=== PATIENT | male | born 1980 | race Caucasian/White ===

== ENCOUNTER 2018-09-11 12:27 | Day surgery (SDC) | payer MEDICAID ==
[~2018-09-11] VITALS: Ht 175.3 cm; Wt 81.8 kg
[2018-09-11 11:40] VITALS: BP 139/81
[~2018-09-11 12:27] MED LIST: CYCL-1 PO; HYDR-4383 PO; NABU500T2 PO; PANT-47 PO
[2018-09-11] MEDS ORDERED: PANT20TA3 PO (13:02)
[2018-09-11] MEDS ORDERED: SUCR1TAB34 PO (13:02)
[2018-09-11] MEDS ORDERED: CYCL-1 PO (13:02)
[2018-09-11] MEDS ORDERED: ALBU8HFA PO (13:03)
[2018-09-11] MEDS ORDERED: IBUP-1986 PO (13:03)
[2018-09-11] MEDS ORDERED: fentaNYL/PF 50MCG/1 ML 2ML syringe ONE (13:10)
[2018-09-11] MEDS ORDERED: MIDAZolam 5mg/5ml vial ONE ×2 (13:11)
[2018-09-11 13:40] VITALS: BP 128/74
[2018-09-11 13:49] VITALS: BP 133/80
[2018-09-11 13:59] VITALS: BP 128/78
[2018-09-11 14:09] VITALS: BP 125/70
== END 2018-09-11 14:25 | disposition home or self-care (01) ==
LOC: GI LAB 12:27
PROVIDERS: ATTEND Internal Medicine Gastroenterology
DX: D12.3 Benign neoplasm of transverse colon (principal); K64.8 Other hemorrhoids; K62.1 Rectal polyp; K92.1 Melena; F17.210 Nicotine dependence, cigarettes, uncomplicated; K21.9 Gastro-esophageal reflux disease without esophagitis; M19.90 Unspecified osteoarthritis, unspecified site; Z72.89 Other problems related to lifestyle; Z79.1 Long term (current) use of non-steroidal anti-inflammatories (NSAID); Z79.899 Other long term (current) drug therapy; Z88.8 Allergy status to other drugs, medicaments and biological substances
CPT/HCPCS: 45385; 99152; J2250; J3010; J7030; 99153; A4620

== ENCOUNTER 2020-07-24 07:07 | Day surgery (SDC) | payer MEDICAID ==
[2020-07-22 09:50] LABS: BASOPHILS % (AUTO) 0.6 % (0-1); EOSINOPHILS # (AUTO) 0.2 X10'3 (0-0.9); EOSINOPHILS % (AUTO) 2.9 % (0-6); LYMPHOCYTES # (AUTO) 1.9 X10'3 (1.1-4.8); LYMPHOCYTES % (AUTO) 28.1 % (21-51); MEAN CORPUSCULAR HEMOGLOBIN 29.2 PG (27.0-31.0); MEAN CORPUSCULAR HGB CONC 33.3 g/dL (33.0-36.5); MEAN CORPUSCULAR VOLUME 87.7 FL (78-98); MEAN PLATELET VOLUME 7.6 FL (7.4-10.4); MONOCYTES # (AUTO) 0.9 X10'3 (0-0.9); MONOCYTES % (AUTO) 13.3 % (2-12); NEUTROPHILS # (AUTO) 3.7 X10'3 (1.8-7.7); NEUTROPHILS % (AUTO) 55.1 % (42-75); PRE OP HEMATOCRIT 41.4 % (42.0-52.0); PRE OP HEMOGLOBIN 13.8 g/dL (14.0-17.9); PRE OP PLATELET COUNT 299 X10'3 (140-440); RED BLOOD COUNT 4.73 X10'6 (4.70-6.10); RED CELL DISTRIBUTION WIDTH 13.1 % (11.5-14.5)
[2020-07-22 09:56] LABS: ALBUMIN 3.9 G/DL (3.4-5.0); ALBUMIN/GLOBULIN RATIO 1.1 (1.1-1.5); ALKALINE PHOSPHATASE 66 IU/L (46-116); BLOOD UREA NITROGEN 13 MG/DL (7-18); BUN/CREATININE RATIO 14.4 (5.4-32.0); CALCIUM 8.9 MG/DL (8.5-10.1); CHLORIDE 102 MMOL/L (99-107); PRE OP ALT 30 U/L (30-65); PRE OP ANION GAP 6 (8-16); PRE OP AST 21 U/L (10-37); PRE OP BILIRUB, TOTAL 0.3 MG/DL (0.0-1.0); PRE OP GLUCOSE 95 MG/DL (70-104); PRE OP POTASSIUM 4.6 MMOL/L (3.4-5.1); PRE OP SODIUM 136 MMOL/L (135-145); TOTAL CARBON DIOXIDE 27.9 MMOL/L (24-32); TOTAL PROTEIN 7.3 G/DL (6.4-8.2); eGFR > 90 ML/MIN
[~2020-07-24] VITALS: Ht 175.3 cm; Wt 102.1 kg
[~2020-07-24 07:07] MED LIST changes: +ALBU8HFA PO; +GABA300C PO; -HYDR-4383 PO; +LISI10TA4 PO; +LORA10TA7 PO; -NABU500T2 PO; -PANT-47 PO; +PANT20TA18 PO; +cefazolin/dext.iso 2gm/50ml 50 ML IV ONE; +famotidine 20mg tablet PO ONE; +ringers solution, lacted 1,000 ML IV SCH
[2020-07-24] MEDS ORDERED: LIDOcaine 0.5% (5mg/ml) 50ml vial ONE (07:22)
[2020-07-24] MEDS ORDERED: ringers solution, lacted 1,000 ML IV SCH (07:26)
[2020-07-24] MEDS ORDERED: hydrALAZINE 20mg/ml inj. IV PRN (07:30)
[2020-07-24] MEDS ORDERED: morphine 4 MG/ML inj SYRINge IV PRN (07:30)
[2020-07-24] MEDS ORDERED: ondansetron/PF 4mg/2ml inj IV PRN (07:30)
[2020-07-24] MEDS ORDERED: labetalol 20mg/4ml (5mg/ml) syringe IV PRN (07:30)
[2020-07-24] MEDS ORDERED: fentaNYL/PF 50MCG/1 ML 2ML syringe IV PRN ×2 (07:30)
[2020-07-24] MEDS ORDERED: morphine 2 MG/ML inj. syringe IV PRN (07:30)
[2020-07-24] MEDS ORDERED: BUPIVAcaine/PF 2.5mg/ml (0.25%) 10ml vial ONE (10:53)
[2020-07-24] MEDS ORDERED: fentaNYL/PF 50MCG/1 ML 2ML syringe ONE (11:21)
[2020-07-24] MEDS ORDERED: MIDAZolam 5mg/5ml vial ONE (11:22)
[2020-07-24 11:39] VITALS: BP 115/75
[2020-07-24 11:42] VITALS: BP 115/75
[2020-07-24 12:07] VITALS: BP 111/75
--- NOTE | 2020-07-24 12:07 | NUR ---
Received from OR via [facility] , accompanied by Anesthesiologist KATE and report given by Anesthesiolgist. PATIENT WITH 20G PIVI N RIGHT UE RUNNING LR AT 100. DENIES PAIN AT THIS TIME. VSS. LEFT HAND WITH SPLINT THAT IS CDI. NO DRAINAGE NO C.O. PAIN AT THIS TIME Addendum: 07/24/20 at 1213 by Norberto Robbins RN, RN Amended: Links added.
[2020-07-24 12:17] VITALS: BP 105/61
[2020-07-24 12:27] VITALS: BP 117/60
[2020-07-24 12:37] VITALS: BP 116/80
--- NOTE | 2020-07-24 12:47 | NUR ---
PATIENT HAS MET ALL DC CRITERIA FOR HOME. VSS. PAIN AT A TOLERABLE LEVEL. PATIENT TAKEN OUT VIA WHEELCHAIR TO PERSONAL VEHICLE WHERE PATIENT WAS TAKEN HOME. DRESSING CDI. ALL DC INSTRUCTIONS DISCUSSED WITH PATIENT. ALL QUESTIONS ANSWERED. Addendum: 07/24/20 at 1256 by Norberto Robbins RN RN Amended: Links added.
[2020-07-24] MEDS ORDERED: ketorolac trometh. 30mg/ml inj. ONE (13:01)
== END 2020-07-24 12:47 | disposition home or self-care (01) ==
LOC: PAS 07:07
PROVIDERS: ATTEND Orthopaedic Surgery Hand Surgery
DX: S68.123A Partial traumatic metacarpophalangeal amputation of left middle finger, initial encounter (principal); S68.125A Partial traumatic metacarpophalangeal amputation of left ring finger, initial encounter; J45.909 Unspecified asthma, uncomplicated; I10 Essential (primary) hypertension; G89.29 Other chronic pain; K21.9 Gastro-esophageal reflux disease without esophagitis; G57.00 Lesion of sciatic nerve, unspecified lower limb; Z79.899 Other long term (current) drug therapy; Z88.8 Allergy status to other drugs, medicaments and biological substances; Z72.89 Other problems related to lifestyle; W28.XXXA Contact with powered lawn mower, initial encounter; Y93.89 Activity, other specified; Y92.89 Other specified places as the place of occurrence of the external cause; Y99.8 Other external cause status
CPT/HCPCS: 26951; 36415; 80053; 82948; 85025; A6222; J1885; J2001; J2250; J3010; J3490; J7120

== ENCOUNTER 2020-11-29 07:40 | Emergency (ER) | payer MEDICAID ==
[~2020-11-29] VITALS: Ht 175.3 cm; Wt 90.9 kg
[~2020-11-29 07:40] MED LIST changes: -cefazolin/dext.iso 2gm/50ml 50 ML IV ONE; -famotidine 20mg tablet PO ONE; -ringers solution, lacted 1,000 ML IV SCH
[2020-11-29 07:45] VITALS: BP 153/96
== END 2020-11-29 09:15 | disposition home or self-care (01) ==
LOC: ER 07:40
DX: S90.32XA Contusion of left foot, initial encounter (principal); G89.29 Other chronic pain; F12.90 Cannabis use, unspecified, uncomplicated; Z88.8 Allergy status to other drugs, medicaments and biological substances; Z79.899 Other long term (current) drug therapy; W01.0XXA Fall on same level from slipping, tripping and stumbling without subsequent striking against object, initial encounter; Y93.89 Activity, other specified; Y92.89 Other specified places as the place of occurrence of the external cause; Y99.8 Other external cause status
CPT/HCPCS: 73630; 99283

== ENCOUNTER 2023-11-12 11:06 | Emergency (ER) | payer MEDICAID ==
[~2023-11-12] VITALS: Ht 175.3 cm; Wt 91.1 kg
[~2023-11-12 11:06] MED LIST changes: +LISI10TA27 PO; -LISI10TA4 PO
[2023-11-12 11:16] VITALS: TEMP 98.6
[2023-11-12 11:56] LABS: BILIRUBIN,URINE NEGATIVE (Neg); CLARITY,URINE CLEAR (Clear); COLOR,URINE YELLOW (Yellow); GLUCOSE, URINE NEGATIVE (Neg); KETONES,URINE NEGATIVE (Neg); LEUKOCYTE ESTERASE ,URINE NEGATIVE (Neg); NITRITES, URINE NEGATIVE (Neg); OCCULT BLOOD,URINE NEGATIVE (Neg); PROTEIN,URINE NEGATIVE (Neg); UROBILINOGEN,URINE 0.2 E.U/dL (0.2-1.0)
[2023-11-12 11:57] LABS: BASOPHILS % (AUTO) 0.2 % (0-1); EOSINOPHILS # (AUTO) 0.1 X10'3 (0-0.9); EOSINOPHILS % (AUTO) 0.5 % (0-6); HEMATOCRIT 49.9 % (42.0-52.0); HEMOGLOBIN 16.5 g/dl (14.0-17.9); LYMPHOCYTES # (AUTO) 3.2 X10'3 (1.1-4.8); LYMPHOCYTES % (AUTO) 27.4 % (21-51); MEAN CORPUSCULAR HEMOGLOBIN 28.7 PG (27.0-31.0); MEAN CORPUSCULAR HGB CONC 33.1 g/dL (33.0-36.5); MEAN CORPUSCULAR VOLUME 86.6 FL (78-98); MEAN PLATELET VOLUME 7.5 FL (7.4-10.4); MONOCYTES % (AUTO) 8.2 % (2-12); NEUTROPHILS # (AUTO) 7.4 X10'3 (1.8-7.7); NEUTROPHILS % (AUTO) 63.7 % (42-75); PLATELET COUNT 335 X10'3 (140-440); RED BLOOD COUNT 5.76 X10'6 (4.70-6.10); WHITE BLOOD COUNT 11.6 X10'3 (4.5-11.0)
[2023-11-12 12:00] LABS: UA COLLECTION TYPE CLN CATCH MIDSTREAM
[2023-11-12 12:11] LABS: ALANINE AMINOTRANSFERASE 39 U/L (12-78); ALBUMIN 4.3 G/DL (3.4-5.0); ALKALINE PHOSPHATASE 75 IU/L (46-116); ANION GAP 9 (8-16); ASPARTATE AMINO TRANSFERASE 32 U/L (10-37); BILIRUBIN,TOTAL 0.5 MG/DL (0.1-1.0); BLOOD UREA NITROGEN 11 MG/DL (7-18); BUN/CREATININE RATIO 11.3 (10.0-20.0); CALCIUM 9.8 MG/DL (8.5-10.1); CHLORIDE 99 MMOL/L (99-107); CREATININE 0.97 MG/DL (0.60-1.10); GLUCOSE 87 MG/DL (70-104); LIPASE 23 U/L (16-77); SODIUM 139 MMOL/L (135-145); TOTAL CARBON DIOXIDE 31.5 MMOL/L (24-32); TOTAL PROTEIN 8.7 G/DL (6.4-8.2); eCRCL 100 ML/MIN; eGFR 85 ML/MIN
[2023-11-12 13:38] VITALS: BP 123/91; PULSE 99; RESP 18; O2SAT 98
[2023-11-12] MEDS ORDERED: ONDA4TAB12 PO (13:44)
[2023-11-12] MEDS ORDERED: NAPR-56 PO (13:44)
== END 2023-11-12 15:23 | disposition home or self-care (01) ==
LOC: ER 11:06
DX: R10.31 Right lower quadrant pain (principal); R11.2 Nausea with vomiting, unspecified; R50.9 Fever, unspecified; G89.29 Other chronic pain; M54.9 Dorsalgia, unspecified; F12.10 Cannabis abuse, uncomplicated; Z88.1 Allergy status to other antibiotic agents; Z88.8 Allergy status to other drugs, medicaments and biological substances; Z79.899 Other long term (current) drug therapy
CPT/HCPCS: 36415; 80053; 81003; 83690; 85025; 99283